=== PATIENT | male | born 1945 | race Caucasian/White ===

== ENCOUNTER → 2018-04-26 18:54 | Outpatient (REF) | payer SELFPAY ==
[2018-04-26 19:06] LABS: Add Manual Diff / Slide Review NO; Eosinophils Percent Auto 2.9 % (2-4); Hematocrit 45.5 % (41-53); Hemoglobin 15.5 g/dL (13.5-17.5); Lymphocytes Percent Auto 30.7 % (25-40); Mean Corpuscular Hemoglobin 32.5 PG (26-34); Mean Corpuscular Volume 95.6 fL (80-100); Monocytes Percent Auto 13.7 % (3-14); Neutrophils Absolute Auto 2900 /uL (3000-5900); Neutrophils Percent Auto 51.7 % (50-75); Platelet Count 204 X10^3/uL (150-400); Red Blood Cell Count 4.76 X10^6/uL (4.5-5.9); Red Cell Distribution Width 14.1 % (11.6-14.8); White Blood Cell Count 5.5 X10^3/uL (4.5-11.0)
[2018-04-26 19:09] LABS: Alanine Aminotransferase 47 IU/L (21-72); Albumin 4.5 g/dL (3.5-5.0); Albumin Globulin Ratio 1.7 (1.0-2.8); Alkaline Phosphatase 61 U/L (38-126); Aspartate Aminotransferase 66 IU/L (17-59); BUN Creatinine Ratio 24.4 (6-22); Bilirubin Total 0.6 mg/dL (0.2-1.3); Blood Urea Nitrogen 22 mg/dL (9-20); Carbon Dioxide 31 mmol/L (22-32); Chloride 105 mmol/L (98-107); Estimated Glomerular Filt Rate > 60.0 mL/min (>60); Globulin 2.7 g/dL (1.7-4.1); Glucose 90 mg/dL (80-110); HEMOLYSIS 22 (0-50); Potassium 3.9 mmol/L (3.4-5.1); Sodium 146 mmol/L (137-145); Total Protein 7.2 g/dL (6.3-8.2)
[2018-04-26 19:26] LABS: Free T3, Triiodothyronine Free 3.69 pg/mL (2.77-5.27); Free T4, Direct Thyroxine 0.96 ng/dL (0.78-2.19)
[2018-04-26 19:40] LABS: Prostate Specific Antigen 0.895 ng/mL (0.10-4.00)
[2018-04-26 20:15] LABS: Folate 10.8 ng/mL (2.76-20.0); Vitamin B12 493 pg/mL (239-931)
== END ==
LOC: LAB 18:54
PROVIDERS: Visit Provider Nurse Practitioner Acute Care
DX: Z79.899 Other long term (current) drug therapy (principal); R53.1 Weakness; R06.02 Shortness of breath; R35.0 Frequency of micturition
CPT/HCPCS: 80053; 82607; 82746; 84153; 84439; 84481; 85025

== ENCOUNTER 2022-02-08 15:22 | Emergency (ER) | payer OTHER, SELFPAY ==
[2022-02-08 15:26] VITALS: BP 125/78; PULSE 83; RESP 18; TEMP 36.6; O2SAT 100
--- NOTE | 2022-02-08 15:30 | DI.RAD.S_ITS ---
PROCEDURE: XR RIBS RT MIN 3V W CXR 1V INDICATIONS: fall TECHNIQUE: 3 views of the right ribs were acquired, along with a single view chest. COMPARISON: None. FINDINGS: Surgical changes and devices: None. Bones and chest wall: No fractures or dislocations. No suspicious bony lesions. Overlying soft tissues appear unremarkable. Lungs and pleura: There is blunting of the left costophrenic angle. Mediastinum: Mediastinal contours appear normal. Heart size is normal. IMPRESSION: No visualized acute fracture or dislocation. However, if clinical concern and/or pain persist, short interval imaging followup in 7-10 days is recommended, as occult injury cannot be definitively excluded. Left costophrenic angle blunting possibly related to scarring versus trace effusion. Dictated by: Viridiana Flores M.D. on 02/08/2022 at 16:41 Approved by: Viridiana Flores M.D. on 02/08/2022 at 16:42
--- NOTE | 2022-02-08 18:41 | DI.US.S_ITS ---
PROCEDURE: US ABDOMEN LIMITED INDICATIONS: RUQ pain TECHNIQUE: Real-time scanning was performed of the abdominal and retroperitoneal organs, with image documentation. COMPARISON: None. FINDINGS: Liver: Liver is normal in size and homogeneous in echotexture. Gallbladder: Non mobile areas of increased echogenicity are identified. Wall thickness is normal measuring 2 mm. Biliary ducts: Intrahepatic bile ducts are non-dilated. Extrahepatic bile duct caliber measures 6 mm. Normal is 6-7 mm or less in diameter, or 10 mm or less post-cholecystectomy. Pancreas: Visualized portions of the pancreas are sonographically normal. IMPRESSION: Non mobile foci of increased echogenicity within the gallbladder possibly non mobile stones versus polyps. No wall thickening. Dictated by: Viridiana Flores M.D. on 02/08/2022 at 19:45 Approved by: Viridiana Flores M.D. on 02/08/2022 at 19:46
[2022-02-08 18:59] VITALS: BP 177/60; PULSE 80; RESP 18; TEMP 36.6; O2SAT 99
[2022-02-08 19:15] LABS: Add Manual Diff / Slide Review NO; Basophils Absolute Auto 0 /uL (0-100); Basophils Percent Auto 0.9 % (0-2); Eosinophils Absolute Auto 100 /uL (0-450); Eosinophils Percent Auto 2.7 % (2-4); Hematocrit 40.5 % (41-53); Hemoglobin 13.8 g/dL (13.5-17.5); Lymphocytes Absolute Auto 1400 /uL (1100-4500); Lymphocytes Percent Auto 26.3 % (25-40); Mean Corpuscular HGB Conc 34.2 % (30-36); Mean Corpuscular Hemoglobin 31.5 PG (26-34); Monocytes Absolute Auto 500 /uL (0-900); Monocytes Percent Auto 9.2 % (3-14); Neutrophils Absolute Auto 3200 /uL (1500-7000); Neutrophils Percent Auto 60.9 % (50-75); Platelet Count 156 X10^3/uL (150-400); Red Cell Distribution Width 14.2 % (11.6-14.8); White Blood Cell Count 5.2 X10^3/uL (4.5-11.0)
--- NOTE | 2022-02-08 19:24 | ED_ITS ---
HPI - Fall General Chief Complaint: Fall Stated Complaint: Fall low level pain right side rib pain Time Seen by Provider: 02/08/22 18:30 Source: patient Mode of arrival: Ambulatory History of Present Illness HPI Narrative: 76-year-old gentleman with no significant medical history presents with right lower rib/right upper quadrant abdominal pain. He notes that 48 hours ago he stumbled and fell on the floor landing on his right side. He was able to get up did not have any pain associated with that injury. This morning he went to [facility] therapy appointment for a right shoulder strain and after an hour of physical therapy work he noted that he was having pain in the right upper quadrant that he assumed was due to the fall 48 hours ago. On further questioning the pain in the right upper quadrant has been present on and off for at least a week. Does not radiate, notes that it seems to be worse at night and recently he has been getting up and using baking soda with significant relief. He does not describe significant reflux type symptoms. He notes that over the last number of months he does occasionally have dark stools but has never had any GI bleeding of note. He has not had abdominal surgeries previously. He denies fever cough chills palpitations abdominal pain vomiting or diarrhea. Review of Systems Review of Systems Narrative: Remainder of complete review of systems is otherwise unremarkable except for that included in the HPI. Exam Initial Vital Signs Initial Vital Signs: Vital Signs Temperature 97.8 F 02/08/22 15:26 Pulse Rate 83 02/08/22 15:26 Respiratory Rate 18 02/08/22 15:26 Blood Pressure 125/78 02/08/22 15:26 Pulse Oximetry 100 02/08/22 15:26 Oxygen Delivery Method 02/08/22 15:26 General: Healthy appearing, in no acute distress. Able to give a complete and coherent history. Well-nourished well-developed HEENT: Moist mucous membranes, normal sclera with reactive pupils, Neck: No JVD, supple Respiratory: Lungs are clear to auscultation, no wheezing no rales no rhonchi. Full and symmetrical air movement Cardiac: Regular rate and rhythm no murmurs no bruits Abdomen: Soft, mild tenderness in the right upper quadrant without rebound or guarding, good bowel tones, no flank pain Chest: No tenderness to ribs along the right side. There are no abrasions or contusions. Skin: Warm and dry, no rashes Neurologic: Grossly neurologically intact with no obvious asymmetries or abnormalities Extremities: No trauma, well perfused Psych: Cooperative, appropriate insight and affect Course Orders Ordered: ED Orders 02/08/22 15:30 XR ribs RT min 3V w CXR1V Stat 02/08/22 18:41 US abdomen limited Stat Complete Blood Count AUTO DIFF Stat 02/08/22 18:55 Comprehensive Metabolic Panel Stat Magnesium Stat Vital Signs Vital signs: Vital Signs - 8 hr 02/08/22 15:26 02/08/22 18:59 Temperature 97.8 F 98 F Pulse Rate 83 80 Respiratory Rate 18 18 Blood Pressure 125/78 177/60 H Pulse Oximetry 100 99 Oxygen Delivery Method Room Air Room Air MDM - Fall Lab Data Result diagrams: 02/08/22 18:41 02/08/22 18:55 Labs: Lab Results 02/08/22 02/08/22 Range/Units 18:41 18:55 WBC 5.2 (4.5-11.0) X10^3/uL RBC 4.40 L (4.5-5.9) X10^6/uL Hgb 13.8 (13.5-17.5) g/dL Hct 40.5 L (41-53) % MCV 92.0 (80-100) fL MCH 31.5 (26-34) PG MCHC 34.2 (30-36) % RDW 14.2 (11.6-14.8) % Plt Count 156 (150-400) X10^3/uL Neut % (Auto) 60.9 (50-75) % Lymph % (Auto) 26.3 (25-40) % [place] % (Auto) 9.2 (3-14) % Eos % (Auto) 2.7 (2-4) % Baso % (Auto) 0.9 (0-2) % Neut # (Auto) 3200 (8708-0961) /uL Lymph # (Auto) 1400 (1752-1890) /uL [place] # (Auto) 500 (0-900) /uL Eos # (Auto) 100 (0-450) /uL Baso # (Auto) 0 (0-100) /uL Sodium 140 (137-145) mmol/L Potassium 4.3 (3.4-5.1) mmol/L Chloride 104 (98-107) mmol/L Carbon Dioxide 28 (22-32) mmol/L BUN 31 H (9-20) mg/dL Creatinine 0.83 (0.66-1.25) mg/dL Estimated GFR > 60 (>60) mL/min BUN/Creatinine Ratio 37.3 H (6-22) Glucose 102 (80-110) mg/dL Calcium 9.1 (8.4-10.2) mg/dL Magnesium 2.1 (1.6-2.3) mg/dL Total Bilirubin 0.4 (0.2-1.3) mg/dL AST 29 (17-59) IU/L ALT 14 (<50) IU/L Alkaline Phosphatase 60 (38-126) U/L Total Protein 7.8 (6.3-8.2) g/dL Albumin 4.6 (3.5-5.0) g/dL Globulin 3.2 (1.7-4.1) g/dL Albumin/Globulin Ratio 1.4 (1.0-2.8) Imaging Data Chest x-ray: Radiologist's Impression: FINDINGS:? ? Surgical changes and devices:? None.? ? Bones and chest wall:? No fractures or dislocations.? No suspicious bony lesions.? Overlying soft tissues appear unremarkable.? ? Lungs and pleura:? There is blunting of the left costophrenic angle. ? Mediastinum:? Mediastinal contours appear normal.? Heart size is normal.? ? IMPRESSION:? ? No visualized acute fracture or dislocation. However, if clinical concern and/or pain persist, short interval imaging followup in 7-10 days is recommended, as occult injury cannot be definitively excluded. ? Left costophrenic angle blunting possibly related to scarring versus trace effusion. ? ? Dictated by: Viridiana Flores M.D. on 02/08/2022 at 16:41 ? ? US - abdomen: Radiologist's Impression: Preliminary report: Positive gallstones, none are obstructing. Normal gallbladder wall, no pericholecystic fluid no evidence of acute cholecystitis MDM Narrative Medical decision making narrative: 76-year-old gentleman with intermittent right upper quadrant pain for the last week to week and half. Seems to be unrelated to a minor fall 48 hours ago. Does have gallstones, which is consistent with his presentation. There is no evidence of infection, obstruction, elevated liver enzymes or additional complications. He will be referred to [facility] for outpatient consultation for cholelithiasis Discharge Plan Departure Patient Disposition: Home Clinical Impression: Gallstones Instructions: DI for Gallstones Activity Restrictions/Additional Instructions: The description of your pain was more concerning for gallbladder issues than for an injury from your fall on Tuesday. Fortunately, your chest x-ray was in entirely unremarkable and there are no rib fractures. Your lab work was very reassuring. Your ultrasound does in fact show gallstones. At this point you do not have acute cholecystitis, and inflamed, infected gallbladder. No gallstones likely are causing the intermittent abdominal pain that you have been experiencing. Please call [facility] at [phone] and let them know that you are in the emergency department, diagnosed with gallstones and would like to set up a consultation appointment to consider cholecystectomy If you find that your having increasing pain, develop any fevers, notice that your skin is turning yellow, jaundice, please return to the emergency department Visit Report Forms: Patient Portal/API
[2022-02-08 20:36] LABS: Alanine Aminotransferase 14 IU/L (<50); Albumin 4.6 g/dL (3.5-5.0); Albumin Globulin Ratio 1.4 (1.0-2.8); Alkaline Phosphatase 60 U/L (38-126); Aspartate Aminotransferase 29 IU/L (17-59); BUN Creatinine Ratio 37.3 (6-22); Bilirubin Total 0.4 mg/dL (0.2-1.3); Blood Urea Nitrogen 31 mg/dL (9-20); Calcium 9.1 mg/dL (8.4-10.2); Carbon Dioxide 28 mmol/L (22-32); Chloride 104 mmol/L (98-107); Estimated Glomerular Filt Rate > 60 mL/min (>60); Globulin 3.2 g/dL (1.7-4.1); Glucose 102 mg/dL (80-110); HEMOLYSIS 38 (0-50); Magnesium 2.1 mg/dL (1.6-2.3); Potassium 4.3 mmol/L (3.4-5.1); Sodium 140 mmol/L (137-145); Total Protein 7.8 g/dL (6.3-8.2)
== END 2022-02-08 19:40 | disposition home or self-care (01) ==
PROVIDERS: Emergency Provider Emergency Medicine
DX: K80.20 Calculus of gallbladder without cholecystitis without obstruction (principal)
CPT/HCPCS: 36415; 71101; 76705; 80053; 83735; 85025; 99283; 99284

== ENCOUNTER 2022-03-27 08:39 | Emergency (ER) | payer OTHER, SELFPAY ==
[2022-03-27 08:51] VITALS: BP 118/76; PULSE 79; RESP 20; TEMP 37; O2SAT 96; BMI 25.9
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
[2022-03-27] MEDS: LIDOCAINE 1% (PF) 5 ML 10 ML INJ (09:10)
[2022-03-27] MEDS: BACITRACIN OINT 0.9 GM PCKT 1 APPLIC TOP (09:32)
[2022-03-27 09:45] VITALS: BP 112/73; PULSE 78; RESP 14; O2SAT 98
== END 2022-03-27 09:46 | disposition home or self-care (01) ==
PROVIDERS: Emergency Provider Emergency Medicine
DX: S01.81XA Laceration without foreign body of other part of head, initial encounter (principal); W22.8XXA Striking against or struck by other objects, initial encounter
CPT/HCPCS: 12013; 99283

== ENCOUNTER 2022-04-01 12:48 | Emergency (ER) | payer OTHER, SELFPAY ==
[2022-04-01 12:52] VITALS: BP 132/86; PULSE 61; RESP 15; TEMP 36.2; O2SAT 96
--- NOTE | 2022-04-01 14:18 | ED.RECABL ---
HPI - Recheck/Abnormal Lab/Rx <Marie Aguirre PA-C - Last Filed: 04/01/22 19:42> General Chief Complaint: Recheck/Abnormal Lab/Rx Stated Complaint: Needs stitches removed- here tuesday Time Seen by Provider: 04/01/22 14:00 Source: patient Mode of arrival: Ambulatory History of Present Illness HPI narrative: Patient presents today for suture removal which he had placed a 6 days ago, he states his suture line is not bleeding, and otherwise is not bothering him He was not sure if he needs to go to [facility] for suture removal, therefore decided to go to ED where he had sutures placed No complaints, no headache no visual changes Related Data Allergies Allergy/AdvReac Type Severity Reaction Status Date / Time No Known Drug Allergies Allergy Verified 04/01/22 12:52 Review of Systems <Marie Aguirre PA-C - Last Filed: 04/01/22 19:42> Review of Systems Narrative: Integumentary/Breasts Comments: laceration left forehead is well healed Patient History <Marie Aguirre PA-C - Last Filed: 04/01/22 19:42> Medical History (Updated 04/01/22 @ 14:21 by Marie Aguirre PA-C) No significant past medical history Surgical History (Updated 03/27/22 @ 09:25 by Chevy Gibson MD) No significant past surgical history Social History Smoking Status: Former smoker Smoking Status: Former smoker tobacco type: cigarettes Substance Use Type: does not use Exam <Marie Aguirre PA-C - Last Filed: 04/01/22 19:42> Narrative Exam Narrative: axo X 3 male in NAD appears well Initial Vital Signs Initial Vital Signs: Vital Signs Temperature 97.2 F L 04/01/22 12:52 Pulse Rate 61 04/01/22 12:52 Respiratory Rate 15 04/01/22 12:52 Blood Pressure 132/86 04/01/22 12:52 Pulse Oximetry 96 04/01/22 12:52 Oxygen Delivery Method 04/01/22 12:52 Skin Other: left periorbital laceration healed X 3 sutures were removed Neuro Cranial Nerves: CN's II-XI intact bilaterally Cognition: normal cognition <DO Monika Gallardo Last Filed: 04/02/22 07:17> Initial Vital Signs Initial Vital Signs: Vital Signs Temperature 97.2 F L 04/01/22 12:52 Pulse Rate 61 04/01/22 12:52 Respiratory Rate 15 04/01/22 12:52 Blood Pressure 132/86 04/01/22 12:52 Pulse Oximetry 96 04/01/22 12:52 Oxygen Delivery Method 04/01/22 12:52 Course <ARY Wiley Last Filed: 04/01/22 19:42> Course Course Narrative: pt was observed in ED sutures removed using suture removal kit Vital Signs Vital signs: Vital Signs - 8 hr 04/01/22 12:52 Temperature 97.2 F L Pulse Rate 61 Respiratory Rate 15 Blood Pressure 132/86 Pulse Oximetry 96 Oxygen Delivery Method Room Air <DO Monika Gallardo Last Filed: 04/02/22 07:17> Vital Signs Vital signs: Vital Signs - 8 hr 04/01/22 12:52 Temperature 97.2 F L Pulse Rate 61 Respiratory Rate 15 Blood Pressure 132/86 Pulse Oximetry 96 Oxygen Delivery Method Room Air MDM - Recheck/Abnormal Lab/Rx <Marie Aguirre PA-C - Last Filed: 04/01/22 19:42> Differential Diagnosis Differential diagnosis: Likely encounter for wound recheck and encounter for removal of sutures MDM Narrative Medical decision making narrative: pt was observed in ED sutures removed using suture removal kit Discharge Plan Departure Patient Disposition: Home Clinical Impression: Laceration of eyebrow and forehead, Encounter for removal of sutures Instructions: DI for Suture Removal Activity Restrictions/Additional Instructions: You have been diagnosed with laceration which was repaired 1 week ago. Today, you presented for suture removal. The suturing line noted to be well healed and ready for suture removal. Today, x3 sutures were removed *What to do: *Please continue to take your regular medications as directed. [x] No new medications given Continue to care for suture line with applying thin layer of triple antibiotic ointment Referrals: Edgar Reyes MD [Primary Care Provider] - Visit Report Forms: Patient Portal/API <DO Monika Gallardo Last Filed: 04/02/22 07:17> Cosign ED Attending Cosignature Attestation: Dr Morton Co-Sign Statement: I was available for consultation during this patient's emergency department visit. This chart is signed by myself for administrative purposes only. I did not have direct contact with this patient during this visit. They were seen independently by the APC.
== END 2022-04-01 14:41 | disposition home or self-care (01) ==
PROVIDERS: Emergency Provider Physician Assistant Medical; PCP Internal Medicine
DX: Z48.02 Encounter for removal of sutures (principal)
CPT/HCPCS: 99281

== ENCOUNTER 2023-01-11 20:06 | Emergency (ER) | payer OTHER, SELFPAY ==
[2023-01-11 20:12] VITALS: BP 140/80; PULSE 64; RESP 15; TEMP 36.6; O2SAT 96; BMI 26.4
--- NOTE | 2023-01-11 20:15 | DI.RAD.S_ITS ---
PROCEDURE: XR TOE RT MIN 2V INDICATIONS: toe injury TECHNIQUE: AP view of the foot and 2 additional views of the great toe acquired. COMPARISON: None. FINDINGS: Bones: There is a mildly displaced fracture within the plantar proximal medial aspect of the great toe. There is suspected extension to the 1st interphalangeal joint. There is moderate degeneration of the 1st metatarsophalangeal joint and mild degeneration of the interphalangeal joints. Soft tissues: There is soft tissue swelling of the great toe. No suspicious soft tissue densities. IMPRESSION: 1. Mildly displaced fracture at the base of the great toe. Dictated by: Diego Lim M.D. on 01/11/2023 at 21:34 Approved by: Diego Lim M.D. on 01/11/2023 at 21:36
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
[2023-01-11 21:22] VITALS: BP 136/84; PULSE 64; RESP 20; TEMP 36.4; O2SAT 98
== END 2023-01-11 21:51 | disposition home or self-care (01) ==
PROVIDERS: Emergency Provider Emergency Medicine; PCP Internal Medicine
DX: S92.401A Displaced unspecified fracture of right great toe, initial encounter for closed fracture (principal); W22.8XXA Striking against or struck by other objects, initial encounter
CPT/HCPCS: 73660; 99283

== ENCOUNTER 2023-01-21 08:30 | Emergency (ER) | payer OTHER, SELFPAY ==
[2023-01-21 08:33] VITALS: BP 131/72; PULSE 56; RESP 18; TEMP 36.7; O2SAT 98; BMI 26.4
--- NOTE | 2023-01-21 08:37 | DI.RAD.S_ITS ---
PROCEDURE: XR FINGER LT MIN 2V INDICATIONS: tramua and swelling of index finger TECHNIQUE: AP hand, 2 views of the 3rd finger(s) acquired. COMPARISON: None. FINDINGS: Bones: Question tiny dorsal avulsion at the PIP joint off the base of the middle phalanx. No suspicious bony lesions. Soft tissues: No suspicious soft tissue calcifications. Soft tissue swelling centered at the PIP joint. IMPRESSION: Question tiny dorsal avulsion at the PIP joint off the base of the middle phalanx. Dictated by: Alf Arciniega M.D. on 01/21/2023 at 8:53 Approved by: Alf Arciniega M.D. on 01/21/2023 at 9:01
[2023-01-21 08:39] VITALS: PULSE 62
--- NOTE | 2023-01-21 08:41 | ED.GENADULT ---
HPI - General Adult General Chief complaint: Extremity Injury, Upper Stated complaint: infected index finger LT hand Time Seen by Provider: 01/21/23 08:37 Source: patient Mode of arrival: Ambulatory History of Present Illness HPI narrative: Patient is a 77-year-old male who is here for evaluation of an injury to his left index finger. He states that approximately 8 days ago he had his finger crushed in an automatic window of a car. He did sustain a small laceration to the back of the index finger. Since that time he is had increase in pain and swelling. Last evening he stated that it was painful and he bent his finger and purulent drainage came out. No fevers. Related Data Previous Rx's Medication Instructions Recorded cephalexin 500 mg capsule 500 mg PO QID 7 days #28 caps 01/21/23 tramadol 50 mg tablet 50 mg PO TID PRN pain #12 tabs 01/21/23 Allergies Allergy/AdvReac Type Severity Reaction Status Date / Time No Known Drug Allergies Allergy Verified 01/11/23 20:12 Review of Systems Constitutional Constitutional: Reports system reviewed and no additional complaints, except as documented Musculoskeletal Musculoskeletal: Reports system reviewed and no additional complaints, except as documented Integumentary/Breasts Skin/Breast: Reports system reviewed and no additional complaints, except as documented Patient History Medical History No significant past medical history Surgical History No significant past surgical history Social History Smoking Status: Former smoker Smoking Status: Former smoker tobacco type: cigarettes alcohol intake frequency: holidays/special occasions only Substance Use Type: does not use Exam Initial Vital Signs Initial Vital Signs: Vital Signs Temperature 98.1 F 01/21/23 08:33 Pulse Rate 56 L 01/21/23 08:33 Respiratory Rate 18 01/21/23 08:33 Blood Pressure 131/72 01/21/23 08:33 Pulse Oximetry 98 01/21/23 08:33 Oxygen Delivery Method Room Air 01/21/23 08:33 Skin Other: Patient with redness specifically on the dorsum of the left index finger that extends from the D IP joint back to the MCP joint. There is also a 1 cm cut on the dorsum of the left index finger over the MCP joint. Neuro Sensory Exam: no sensory deficits noted Extrem Other: Circumferential swelling of the left index finger. No tenderness along the flexor tendon although he is holding the finger in slight flexion. Procedures Orthopedic Splinting/Casting Injury #1: Side: left Upper Extremity Injury Location: finger Upper Extremity Immobilizer: aluminum form splint Post splinting neuro exam: no change Post splinting vascular exam: no change Placed by: Nursing Course Orders Ordered: ED Orders 01/21/23 08:37 XR finger LT min 2V Stat Vital Signs Vital signs: Vital Signs - 8 hr 01/21/23 08:33 01/21/23 08:39 Temperature 98.1 F Pulse Rate 56 L Pulse Rate [Left Radial] 62 Respiratory Rate 18 Blood Pressure 131/72 Pulse Oximetry 98 Oxygen Delivery Method Room Air Medical Decision Making Imaging Data Extremity x-ray #1: Radiologist's Impression: PROCEDURE:? XR FINGER LT MIN 2V ? INDICATIONS:? tramua and swelling of index finger ? TECHNIQUE:? AP hand, 2 views of the 3rd finger(s) acquired.? ? COMPARISON:? None. ? FINDINGS:? ? Bones:? Question tiny dorsal avulsion at the PIP joint off the base of the middle phalanx.? No suspicious bony lesions.? ? Soft tissues:? No suspicious soft tissue calcifications.? Soft tissue swelling centered at the PIP joint.? ? IMPRESSION:? Question tiny dorsal avulsion at the PIP joint off the base of the middle phalanx. MDM Narrative Medical decision making narrative: X-ray does show potential avulsion fracture and this is near the area where the cut is on the back of his finger. Low suspicion for an open joint. The cut on the back of his finger is draining. Low suspicion for abscess. No indication to stitch this has we wanted to drain. I have low suspicion for flexor tenosynovitis based on his presentation. He does need to be placed on antibiotics. A prescription was sent to the pharmacy of his choice. He was placed in a aluminum splint for soft tissue rest. He was given strict return precautions. He expressed understanding and agreement. Discharge Plan Departure Patient Disposition: Home Clinical Impression: Cellulitis Instructions: Cellulitis Activity Restrictions/Additional Instructions: You can wash your hands like normal. You can remove the splint to do this. Take the antibiotics as directed. If your symptoms are not improving with the antibiotics please return to the emergency department for further evaluation. Prescriptions: New cephalexin 500 mg capsule 500 mg PO QID 7 Days Qty: 28 0RF tramadol 50 mg tablet 50 mg PO TID PRN (Reason: pain) Qty: 12 0RF Referrals: Edgar Reyes MD [Primary Care Provider] - Stand Alone Forms: Patient Portal/API
== END 2023-01-21 09:28 | disposition home or self-care (01) ==
PROVIDERS: Emergency Provider Emergency Medicine; PCP Internal Medicine
DX: L03.012 Cellulitis of left finger (principal)
CPT/HCPCS: 29130; 73140; 99281; 99283

== ENCOUNTER 2023-03-06 20:22 | Emergency (ER) | payer OTHER, SELFPAY ==
[2023-03-06 20:24] VITALS: BP 123/65; PULSE 60; RESP 16; TEMP 36.7; O2SAT 98; BMI 25.7
[2023-03-06 20:43] VITALS: O2SAT 95
[2023-03-06 20:44] VITALS: BP 128/75; PULSE 57; O2SAT 95
[2023-03-06 21:00] VITALS: PULSE 60; O2SAT 94
[2023-03-06 21:01] VITALS: BP 114/65; PULSE 54; O2SAT 95
[2023-03-06 21:30] VITALS: BP 118/88; PULSE 58; O2SAT 97
== END 2023-03-06 21:52 | disposition left against medical advice (07) ==
PROVIDERS: Emergency Provider Emergency Medicine; PCP Internal Medicine
CPT/HCPCS: 99281